=== PATIENT | male | born 1950 | race Caucasian/White ===

== ENCOUNTER 2020-10-18 22:41 | Emergency (ER) | payer MEDICARE, OTHER ==
[~2020-10-18] VITALS: Ht 175.3 cm; Wt 86.3 kg
[2020-10-18 23:26] LABS: CLARITY,URINE HAZY; COLOR,URINE ORANGE
[2020-10-18 23:27] LABS: BACTERIA,URINE FEW /HPF (0-FEW); RBC,URINE 0 /HPF (0-2); SQUAMOUS EPITHELIAL CELL,UR OCC /LPF; WBC,URINE >40 /HPF (0-4)
[2020-10-18 23:46] LABS: BASO # 0.1 x10^3/uL (0.0-0.2); BASO % 1 % (0-3); EOS # 0.2 x10^3/uL (0.0-0.7); EOS % 1 % (0-3); HEMATOCRIT 35.5 % (39.0-53.0); HEMOGLOBIN 12.2 g/dL (13.0-17.5); LYMPH # 0.3 x10^3/uL (1.0-4.8); LYMPH % 2 % (24-48); MEAN CORPUSCULAR HEMOGLOBIN 31 pg (25-35); MEAN CORPUSCULAR HGB CONC 34 g/dL (31-37); MEAN CORPUSCULAR VOLUME 90 fL (79-100); MONO # 1.5 x10^3/uL (0.0-1.1); MONO % 10 % (0-9); NEUT # 12.4 x10^3uL (1.8-7.7); NEUT % 86 % (31-73); PLATELET COUNT 219 x10^3/uL (140-400); RED BLOOD COUNT 3.96 x10^6/uL (4.30-5.70); WHITE BLOOD COUNT 14.5 x10^3/uL (4.0-11.0)
[2020-10-19 00:07] LABS: % BANDS 11 % (0-9); % LYMPHS 3 % (24-48); % MONOS 10 % (0-10); % SEGS 76 % (35-66); PLT ESTIMATE ADEQUATE (ADEQUATE)
[2020-10-19] MEDS ORDERED: CIPROFLOXACIN HCL 500 MG TABLET PO ONE (00:45)
[2020-10-19] MEDS ORDERED: IV NORMAL SALINE 100ML 100 ML ONE (00:48)
[2020-10-19 00:56] LABS: CALCIUM 8.8 mg/dL (8.5-10.1); CREATININE 1.8 mg/dL (0.7-1.3); GFR 37.5; POTASSIUM 3.1 mmol/L (3.5-5.1)
[2020-10-19 01:02] LABS: ALBUMIN 2.7 g/dL (3.4-5.0); ALBUMIN/GLOBULIN RATIO 0.6 (1.0-1.7); TOTAL BILIRUBIN 0.6 mg/dL (0.2-1.0); TOTAL PROTEIN 7.1 g/dL (6.4-8.2)
--- NOTE | 2020-10-19 01:26 | PHYS DOC ---
Past History Past Medical History: Cancer, Hypertension, Prostatitis, UTI Additional Past Medical Histor: prostate cancer Past Surgical History: Other Alcohol Use: None General Adult EDM: Chief Complaint: FEVER HPI: HPI: ".. I ve got prostate cancer.. and have been getting radiation treatments.. but the last couple days .. I ve had some increase dysuria. and feel.. like am getting some fevers and chills..." Patient is a 70 year old male who presents with dysuria and complaints of fever and chills. Pt. is currently undergoing radiation therapy for prostate cancer. He has approximately 11 more radiation treatments ago out of a total of 43. Patient reports that his cancer is localized to the prostate. No recent travel. No specific ill contacts. Has not documented a specific fever but only subjective feelings of fever. Did start taking Pyridium [id number] for his dysuria. No history of immunosuppression. Pt.follows with Dr Tracey and Dr. Mina for his prostate cancer treatment. Patient has a past medical history of abnormal EKG with intraventricular block. Review of Systems: Review of Systems: Constitutional: Denies fever or chills Eyes: Denies change in visual acuity HENT: Denies nasal congestion or sore throat Respiratory: Denies cough or shortness of breath Cardiovascular: Denies chest pain or edema GI: Denies abdominal pain, nausea, vomiting, bloody stools or diarrhea : Denies dysuria Musculoskeletal: Denies back pain or joint pain Integument: Denies rash Neurologic: Denies headache, focal weakness or sensory changes Endocrine: Denies polyuria or polydipsia Lymphatic: Denies swollen glands Psychiatric: Denies depression or anxiety Family History: Family History: None contributory to presentation Current Medications: Current Meds: Current Medications Medications (Trade) Dose Ordered Sig/Beverly Start Time Stop Time Status Last Admin Dose Admin Ceftriaxone Sodium 2 gm/ Sodium Chloride 100 ml @ 200 mls/hr 1X ONCE 10/19/20 00:45 10/19/20 01:14 DC 10/19/20 00:45 200 MLS/HR Ceftriaxone Sodium (Rocephin) 2 gm STK-MED ONCE 10/19/20 00:48 10/19/20 00:49 DC Ciprofloxacin (Cipro) 500 mg 1X ONCE 10/19/20 00:45 10/19/20 00:46 DC 10/19/20 00:53 500 MG Sodium Chloride 100 ml @ As Directed STK-MED ONCE 10/19/20 00:48 10/19/20 00:49 DC Allergies: Allergies: Allergies Coded Allergies Type Severity Reaction Last Updated Verified Sulfa (Sulfonamide Antibiotics) Allergy Intermediate 10/18/20 Yes Physical Exam: PE: Constitutional: Moderate acute distress, non-toxic appearance. [] HENT: Normocephalic, atraumatic, bilateral external ears normal, oropharynx dry, no oral exudates, nose normal. [] Eyes: PERRLA, EOMI, conjunctiva normal, no discharge. [] Neck: Normal range of motion, no tenderness, supple, no stridor. [] Cardiovascular: Tachycardia heart rate regular rhythm, no murmur. Monitor shows a wide-complex rhythm rhythm. Lungs & Thorax: Bilateral breath sounds clear to auscultation [] Abdomen: Bowel sounds normal, soft, suprapubic tenderness, no masses, no pulsatile masses. Patient climbed rectal exam at this time. Skin: Warm, dry, no erythema, no rash. [] Back: No tenderness, no CVA tenderness. [] Extremities: No tenderness, no cyanosis, no clubbing, ROM intact, no edema. Arthritic changes. Neurologic: Alert and oriented X 3, normal motor function, normal sensory function, no focal deficits noted. [] Psychologic: Affect anxious, judgement normal, mood normal. [] Current Patient Data: Labs: Laboratory Tests Test 10/18/20 22:55 10/18/20 23:13 Urine Collection Type Unknown Urine Color [place] Urine Clarity [place] Urine pH Urine Specific [place] Urine Protein (NEG-TRACE) Urine Glucose (UA) mg/dL (NEG) Urine Ketones (Stick) mg/dL (NEG) Urine Blood (NEG) Urine Nitrite (NEG) Urine Bilirubin (NEG) Urine Urobilinogen Dipstick mg/dL (0.2 mg/dL) Urine Leukocyte Esterase (NEG) Urine RBC 0 /HPF (0-2) Urine WBC >40 /HPF (0-4) Urine Squamous Epithelial Cells Occ /LPF Urine Bacteria Few /HPF (0-FEW) White Blood Count 14.5 x10^3/uL (4.0-11.0) H Red Blood Count 3.96 x10^6/uL (4.30-5.70) L Hemoglobin 12.2 g/dL (13.0-17.5) L Hematocrit 35.5 % (39.0-53.0) L Mean Corpuscular Volume 90 fL (79-100) Mean Corpuscular Hemoglobin 31 pg (25-35) Mean Corpuscular Hemoglobin Concent 34 g/dL (31-37) Red Cell Distribution Width 16.0 % (11.5-14.5) H Platelet Count 219 x10^3/uL (140-400) Neutrophils (%) (Auto) 86 % (31-73) H Lymphocytes (%) (Auto) 2 % (24-48) L Monocytes (%) (Auto) 10 % (0-9) H Eosinophils (%) (Auto) 1 % (0-3) Basophils (%) (Auto) 1 % (0-3) Neutrophils # (Auto) 12.4 x10^3uL (1.8-7.7) H Lymphocytes # (Auto) 0.3 x10^3/uL (1.0-4.8) L Monocytes # (Auto) 1.5 x10^3/uL (0.0-1.1) H Eosinophils # (Auto) 0.2 x10^3/uL (0.0-0.7) Basophils # (Auto) 0.1 x10^3/uL (0.0-0.2) Segmented Neutrophils % 76 % (35-66) H Band Neutrophils % 11 % (0-9) H Lymphocytes % 3 % (24-48) L Monocytes % 10 % (0-10) Platelet Estimate Adequate (ADEQUATE) Sodium Level 131 mmol/L (136-145) L Potassium Level 3.1 mmol/L (3.5-5.1) L Chloride Level 96 mmol/L (98-107) L Carbon Dioxide Level 22 mmol/L (21-32) Anion Gap 13 (6-14) Blood Urea Nitrogen 17 mg/dL (8-26) Creatinine 1.8 mg/dL (0.7-1.3) H Estimated GFR (Cockcroft-Gault) 37.5 BUN/Creatinine Ratio 9 (6-20) Glucose Level 490 mg/dL (70-99) H Calcium Level 8.8 mg/dL (8.5-10.1) Total Bilirubin 0.6 mg/dL (0.2-1.0) Aspartate Amino Transferase (AST) 28 U/L (15-37) Alanine Aminotransferase (ALT) 33 U/L (16-63) Alkaline Phosphatase 107 U/L (46-116) Troponin I Quantitative < 0.017 ng/mL (0-0.055) Total Protein 7.1 g/dL (6.4-8.2) Albumin 2.7 g/dL (3.4-5.0) L Albumin/Globulin Ratio 0.6 (1.0-1.7) L Vital Signs: Vital Signs Date Time Temp Pulse Resp B/P (MAP) Pulse Ox O2 Delivery O2 Flow Rate FiO2 10/19/20 00:23 70 16 137/70 (92) 98 Room Air 10/18/20 23:00 98.5 EKG: EKG: My interpretation EKG shows a sinus rhythm at 99 bpm with left axis deviation pending fascicular block. Contour abnormality in the anterior leads. No findings of acute STEMI with contralateral changes [] Radiology/Procedures: Radiology/Procedures: Refused CXR[] Heart Score: C/O Chest Pain: N/A HEART Score for Chest Pain: HEART Score for Chest Pain Response (Comments) Value History Moderately Suspicious 1 ECG Nonspecific Repolarizatio 1 Age > 65 2 Risk Factors 1 or 2 Risk Factors 1 Troponin < Normal Limit 0 Total 5 Risk Factors: Risk Factors: DM, Current or recent (<one month) smoker, HTN, HLP, family history of CAD, obesity. Risk Scores: Score 0 - 3: 2.5% MACE over next 6 weeks - Discharge Home Score 4 - 6: 20.3% MACE over next 6 weeks - Admit for Clinical Observation Score 7 - 10: 72.7% MACE over next 6 weeks - Early Invasive Strategies Course & Med Decision Making: Course & Med Decision Making Pertinent Labs and Imaging studies reviewed. (See chart for details) Patient reports marked improvement of symptoms after fluid boluses and starting on Rocephin and Cipro. Patient elects to be discharged home on Cipro 500 twice a day. Patient to follow-up pending urine and blood cultures. Patient return if any concerns. Patient push fluids. Patient push vitamin C drinks. Push fluids. Tylenol and ibuprofen as needed for discomfort and fever. Patient return if any concerns. Patient to keep follow-ups for his radiation therapy and follow-ups with his primary care. Impression: 1. UTI - UA > 40 WBC vs inflammation from radiation treatment 2. Fever 3. Prostate cancer-under treatment with radiation 4. Leukocytosis 14.5 with segs 76 and bands 11 5. Anemia Hgb. 12.2 [] Dragon Disclaimer: Dragkathie Disclaimer: This electronic medical record was generated, in whole or in part, using a voice recognition dictation system. Departure Departure: Referrals: DENIS MIRELES (PCP) Scripts Ciprofloxacin Hcl (CIPROFLOXACIN HCL) 500 Mg Tablet 500 MG PO BID for fever/uti for 14 Days, #28 TAB Prov: ALMA MARTINO MD 10/19/20 Kaia Disclaimer This chart was dictated in whole or in part using Voice Recognition software in a busy, high-work load, and often noisy Emergency Department environment. It may contain unintended and wholly unrecognized errors or omissions. ALMA MARTINO MD October 19, 2020 01:25
[2020-10-19] MEDS ORDERED: IV RINGERS SOLUTION,LACTATED 1,000 ML IV ONE (01:30)
[2020-10-19] MEDS ORDERED: CIPR500T2 PO (02:57)
--- NOTE | 2020-10-19 03:10 | EKG ---
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
[2020-10-19 03:40] VITALS: BP 133/89
== END 2020-10-19 03:40 | disposition home or self-care (01) ==
LOC: ER 22:41
DX: N39.0 Urinary tract infection, site not specified (principal); D72.829 Elevated white blood cell count, unspecified; D64.9 Anemia, unspecified; C61 Malignant neoplasm of prostate; R11.2 Nausea with vomiting, unspecified; I10 Essential (primary) hypertension; Z87.440 Personal history of urinary (tract) infections; Z88.2 Allergy status to sulfonamides
CPT/HCPCS: 36415; 80053; 81001; 84484; 85007; 85025; 87040; 87086; 87205; 93005; 96365; 96366; 99284; J0696; J7120; 80051

== ENCOUNTER 2021-02-23 13:29 | Emergency (ER) | payer MEDICARE, OTHER ==
[~2021-02-23] VITALS: Ht 175.3 cm; Wt 84.7 kg
[~2021-02-23 13:29] MED LIST: CIPR500T2 PO
--- NOTE | 2021-02-23 14:26 | PHYS DOC ---
Past History Past Medical History: Cancer, Hypertension, Prostatitis, UTI Additional Past Medical Histor: prostate cancer Past Surgical History: Cancer Surgery, Other Additional Past Surgical Histo: BOWEL RESECTION Alcohol Use: Rarely Adult General Chief Complaint Chief Complaint: BLURRED/DOUBLE VISION [facility] HPI Patient is a 70-year-old male presenting for blurred vision. Reports 6 days prior to arrival patient was bending over to tie his shoe while sitting on the side of his bed. He reports getting dizzy and falling down hitting his right posterior portion of his occiput on the carpet bedroom floor. There was no loss of consciousness, no sequelae of said fall. Reports he was able to get up on his own well and carry on with the day. He reports approximately 2 days later developing double vision with development of a left inward gaze of his left eyeball. The symptoms have been constant for past 4 days prompting him to call his social organization professor today for recommendations. It was advised he come into the ER for evaluation by their office. Patient denies any history of CVA, no blood thinner use, no other changes in motor or sensory or neuro function. He admits he has not been to the eye doctor's office in a few years and likely needs updated prescription Review of Systems Review of Systems Fourteen body systems of review of systems have been reviewed. See HPI for pertinent positives and negative responses, other jay all other systems are negative, non-pertinent or non-contributory Allergies Allergies Allergies Coded Allergies Type Severity Reaction Last Updated Verified Sulfa (Sulfonamide Antibiotics) Allergy Intermediate 10/18/20 Yes Physical Exam Physical Exam General: Appears well, non toxic, and comfortable Skin: Warm, dry. Normal for ethnicity. HEENT: Atraumatic. PERRLA. EOMI. Negative exam with ophthalmoscope. Moist mucous membranes. Neck: Trachea midline. Normal ROM. Respiratory: Normal WOB. CTAB w/o w/r/r. No tachypnea. Cardiovascular: Regular rate and rhythm. Normal peripheral perfusion. No edema. Abdomen: Soft. Non tender. No distension. Back: Normal ROM. Musculoskeletal: No swelling or deformity. Neuro: Alert and oriented x 4. Gait unremarkable. MAEE. GCS 15. Cranial nerves II through XII intact except there is leftward deviation/esotropia of left eye without issues during tracking, normal strength and sensation. Normal speech. Psych: Normal affect and mood. Current Patient Data Vital Signs Vital Signs Date Time Temp Pulse Resp B/P (MAP) Pulse Ox O2 Delivery O2 Flow Rate FiO2 02/23/21 13:40 97.6 61 20 138/87 98 Room Air Lab Results Laboratory Tests Test 02/23/21 14:30 02/23/21 14:34 White Blood Count 6.2 x10^3/uL Red Blood Count 4.56 x10^6/uL Hemoglobin 14.0 g/dL Hematocrit 40.9 % Mean Corpuscular Volume 90 fL Mean Corpuscular Hemoglobin 31 pg Mean Corpuscular Hemoglobin Concent 34 g/dL Red Cell Distribution Width 13.8 % Platelet Count 182 x10^3/uL Neutrophils (%) (Auto) 60 % Lymphocytes (%) (Auto) 23 % Monocytes (%) (Auto) 8 % Eosinophils (%) (Auto) 8 % Basophils (%) (Auto) 1 % Neutrophils # (Auto) 3.7 x10^3uL Lymphocytes # (Auto) 1.4 x10^3/uL Monocytes # (Auto) 0.5 x10^3/uL Eosinophils # (Auto) 0.5 x10^3/uL Basophils # (Auto) 0.1 x10^3/uL Sodium Level 139 mmol/L Potassium Level 4.2 mmol/L Chloride Level 103 mmol/L Carbon Dioxide Level 26 mmol/L Anion Gap 10 Blood Urea Nitrogen 18 mg/dL Creatinine 1.5 mg/dL Estimated GFR (Cockcroft-Gault) 46.3 Glucose Level 157 mg/dL Calcium Level 9.1 mg/dL Troponin I Quantitative < 0.017 ng/mL Glucose (Fingerstick) 143 mg/dL Current Medications Medications (Trade) Dose Ordered Sig/Beverly Route PRN Reason Start Time Stop Time Status Last Admin Dose Admin Iohexol (Omnipaque 350 Mg/ml) 100 ml 1X ONCE IV 02/23/21 15:30 02/23/21 15:31 DC 02/23/21 15:38 Info (Do NOT chart on this entry -- for MONITORING) 1 each PRN DAILY PRN MC SEE COMMENTS 02/23/21 15:30 02/25/21 15:29 Iohexol (Omnipaque 350 Mg/ml) 100 ml STK-MED ONCE .ROUTE 02/23/21 15:28 02/23/21 15:28 DC EKG EKG EKG ordered and interpreted by myself at 1431 hrs. as sinus rhythm at 53 bpm, prolonged DC at 208 otherwise unremarkable intervals, left axis deviation, no STEMI Prior EKG obtained October 18, 2020 reviewed for comparison and grossly unchanged Radiology/Procedures Radiology/Procedures Exam: CT head. CTA head and neck INDICATION: Fall one week ago, left eye blurred vision TECHNIQUE: Sequential axial images through the head were obtained without the administration of IV contrast. Sequential axial images through the head and neck following the administration of 80 mL of Isovue-370. 3-D reformatted images were reconstructed from the axial data and reviewed. Exposure: One or more of the following in the visualized dose reduction techniques were utilized for this examination: 1. Automated exposure control 2. Adjustment of the MA and/or KV according to patient size 3. Use of iterative of reconstructive technique Comparisons: None FINDINGS: Head: No focal parenchymal lesion or hemorrhage is identified. There is no midline shift or sulcal effacement. Patchy hypodensity in the periventricular white matter. No acute vascular territory infarction is identified. Gustafson-white distinction is preserved. The ventricular system is within normal limits without compression hydrocephalus. The basal cisterns are well maintained. The visualized portions of the paranasal sinuses and mastoid air cells are well- pneumatized. No acute fractures. CTA NECK: Visualized portions of the thoracic aorta are unremarkable. Standard three- vessel aortic arch anatomy. Right common carotid artery is patent without evidence of stenosis, occlusion or aneurysm. Mild calcified plaque at the origin of the right internal carotid artery without significant stenosis. Left common carotid artery is patent without evidence of stenosis, occlusion or aneurysm. Mild plaque at the origin of the left internal carotid artery without significant stenosis. Right vertebral artery is patent to the basilar confluence without evidence of stenosis, occlusion or aneurysm. Left vertebral artery is patent to the basilar confluence without evidence of stenosis, occlusion or aneurysm. Visualized paraspinal soft tissues are unremarkable. CTA HEAD: Minimal calcified plaque at the cavernous segment of the right internal carotid artery without significant stenosis. Right MCA is patent. Right FANNIE is patent. Minimal calcified plaque at the cavernous segment of the left internal carotid artery without cement stenosis. Left MCA is patent. Left FANNIE is patent. Basilar artery is patent without evidence of stenosis, occlusion or aneurysm. tax investigator are patent bilaterally. IMPRESSION: 1. Moderate small vessel ischemic change, technically age indeterminate without recent prior imaging. 2. Mild plaque at the origin of the internal carotid arteries bilaterally without significant stenosis. 3. Minimal calcified plaque at the cavernous segments of the internal carotid arteries bilaterally without significant stenosis. Electronically signed by: Jesse Pedersen MD (02/23/2021 4:12 PM) [facility] Heart Score C/O Chest Pain: No HEART Score for Chest Pain: HEART Score for Chest Pain Response (Comments) Value History Slighlty/Non-Suspicious 0 ECG Nonspecific Repolarizatio 1 Age > 65 2 Risk Factors >3 Risk Factors or Hx CAD 2 Troponin < Normal Limit 0 Total 5 Risk Factors: Risk Factors: DM, Current or recent (<one month) smoker, HTN, HLP, family history of CAD, obesity. Risk Scores: Risk Factors: DM, Current or recent (<one month) smoker, HTN, HLP, family history of CAD, obesity. Course & Med Decision Making Course & Med Decision Making ABCs unremarkable. I disclosed entirety of ER findings and discussed most likely diagnosis of blurred vision and left ocular muscle abnormality/esotropia of unknown etiology. Other diagnoses were discussed with patient such as CVA, intracerebral hemorrhage versus other immediately life-threatening diagnoses but all deemed less likely causes of patient's presentation. I contacted on-call neurologist attending and reviewed case at length, he agreed need for CT head and CTA head and neck that were unremarkable for any emergent or surgical issues. Patient while out of the window for any type of thrombolytic or other surgical intervention. It was recommended that patient be admitted for neuro checks and formal evaluation by neurologist; however, patient and wanting to discharge home. Patient and disclosed they want to see eye doctor this evening with plans for close outpatient follow-up with neurologist. They report that despite blurred vision and eye changes recently, patient has had gait instability and other concerning findings that have been chronic and likely contributory to patient's history of prostate cancer with numerous radiation treatments. I again disclosed my concern for patient being discharged home and recommended need for hospital admission but they deferred. and daughter reiterate good family support and plan on taking care of patient ensuring proper fall precautions until patient can be formally evaluated by social organization professor and later neurologist in outpatient setting. I contacted neurology attending regarding this and he felt it was appropriate, he advised patient to contact his office 1st thing next scheduled business day for close follow-up within upcoming 24 hours. As such, plan of care discussed at length with need for close outpatient follow-up to review today's ER visit stressed. Strict return precautions were also discussed at length with good understanding verbalized by patient. Patient voiced understanding and agreement with the plan. Patient knows to come back for repeat evaluation if concerning signs or symptoms present prior to outpatient follow-up. Hemodynamically stable, ambulatory and well-appearing at time of disposition. Dragon Disclaimer Dragon Disclaimer This electronic medical record was generated, in whole or in part, using a voice recognition dictation system. Departure Departure: Impression: Primary Impression: Blurred vision, bilateral Additional Impression: Esotropia, left eye Disposition: HOME / SELF CARE / HOMELESS Condition: STABLE Referrals: DENIS MIRELES (PCP) ZEUS VALLEJO MD Patient Instructions: Eye - Blurred Vision Additional Instructions: As discussed prior to ER departure, your comprehensive ER work-up was nonconcerning for any emergent or surgical issues. As disclosed, there were no emergent or surgical indications for aggressive intervention while in ER. With that said, I did disclose and recommended hospital admission for your continued blurred vision in left eye inward gaze otherwise known as esotropia. You chose to discharge home. Because of this, it is pertinent that you contact your eye doctor for close evaluation with an upcoming 24 to 48 hours. I also relayed the decision for you to follow-up in outpatient setting with Dr. Vallejo, the neurologist I spoke with while in the ER and he asks you to call his office first thing in the morning at 9 AM to get a scheduled outpatient clinic visit tomorrow on February 24, 2021. If any concerning signs or symptoms present prior to outpatient follow-up please do not hesitate to come back for repeat evaluation, was a pleasure to take care of you and I wish you the best going forward Problem Qualifiers SABINA ALMENDAREZ DO Feb 23, 2021 14:26
--- NOTE | 2021-02-23 14:30 | EKG ---
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
[2021-02-23 14:56] LABS: BASO # 0.1 x10^3/uL (0.0-0.2); BASO % 1 % (0-3); EOS # 0.5 x10^3/uL (0.0-0.7); EOS % 8 % (0-3); HEMATOCRIT 40.9 % (39.0-53.0); LYMPH # 1.4 x10^3/uL (1.0-4.8); LYMPH % 23 % (24-48); MEAN CORPUSCULAR HEMOGLOBIN 31 pg (25-35); MEAN CORPUSCULAR HGB CONC 34 g/dL (31-37); MEAN CORPUSCULAR VOLUME 90 fL (79-100); MONO # 0.5 x10^3/uL (0.0-1.1); MONO % 8 % (0-9); NEUT # 3.7 x10^3uL (1.8-7.7); NEUT % 60 % (31-73); PLATELET COUNT 182 x10^3/uL (140-400); RED BLOOD COUNT 4.56 x10^6/uL (4.30-5.70); RED CELL DISTRIBUTION WIDTH 13.8 % (11.5-14.5); WHITE BLOOD COUNT 6.2 x10^3/uL (4.0-11.0)
[2021-02-23 15:16] LABS: CALCIUM 9.1 mg/dL (8.5-10.1); CREATININE 1.5 mg/dL (0.7-1.3); GFR 46.3; POTASSIUM 4.2 mmol/L (3.5-5.1)
[2021-02-23] MEDS ORDERED: IOHEXOL 350 MG/ML 100 ML VIAL. ONE (15:28)
[2021-02-23] MEDS ORDERED: CONTRAST GIVEN. MC PRN (15:30)
[2021-02-23] MEDS ORDERED: IOHEXOL 350 MG/ML 100 ML VIAL. IV ONE (15:30)
--- NOTE | 2021-02-23 16:15 | RAD ---
Exam: CT head. CTA head and neck INDICATION: Fall one week ago, left eye blurred vision TECHNIQUE: Sequential axial images through the head were obtained without the administration of IV co ntrast. Sequential axial images through the head and neck following the administration of 80 mL of Is ovue-370. 3-D reformatted images were reconstructed from the axial data and reviewed. Exposure: One or more of the following in the visualized dose reduction techniques were utilized for this examination: 1. Automated exposure control 2. Adjustment of the MA and/or KV according to patient size 3. Use of iterative of reconstructive technique Comparisons: None FINDINGS: Head: No focal parenchymal lesion or hemorrhage is identified. There is no midline shift or sulcal effaceme nt. Patchy hypodensity in the periventricular white matter. No acute vascular territory infarction is luis alfredo ntified. Gustafson-white distinction is preserved. The ventricular system is within normal limits without compression hydrocephalus. The basal cisterns are well maintained. The visualized portions of the paranasal sinuses and mastoid air cells are well-pneumatized. No acute fractures. CTA NECK: Visualized portions of the thoracic aorta are unremarkable. Standard three-vessel aortic arch anatomy . Right common carotid artery is patent without evidence of stenosis, occlusion or aneurysm. Mild calci fied plaque at the origin of the right internal carotid artery without significant stenosis. Left common carotid artery is patent without evidence of stenosis, occlusion or aneurysm. Mild plaque at the origin of the left internal carotid artery without significant stenosis. Right vertebral artery is patent to the basilar confluence without evidence of stenosis, occlusion or aneurysm. Left vertebral artery is patent to the basilar confluence without evidence of stenosis, occlusion or aneurysm. Visualized paraspinal soft tissues are unremarkable. CTA HEAD: Minimal calcified plaque at the cavernous segment of the right internal carotid artery without signif icant stenosis. Right MCA is patent. Right FANNIE is patent. Minimal calcified plaque at the cavernous segment of the left internal carotid artery without cement stenosis. Left MCA is patent. Left FANNIE is patent. Basilar artery is patent without evidence of stenosis, occlusion or aneurysm. oracle adf developer are patent bilater ally. IMPRESSION: 1. Moderate small vessel ischemic change, technically age indeterminate without recent prior imaging . 2. Mild plaque at the origin of the internal carotid arteries bilaterally without significant stenos is. 3. Minimal calcified plaque at the cavernous segments of the internal carotid arteries bilaterally w ithout significant stenosis. Electronically signed by: Jesse Pedersen MD (02/23/2021 4:12 PM) [facility]
[2021-02-23 17:12] VITALS: BP 159/87
== END 2021-02-23 17:21 | disposition home or self-care (01) ==
LOC: ER 13:29
DX: H53.8 Other visual disturbances (principal); H50.00 Unspecified esotropia; I10 Essential (primary) hypertension; Z87.440 Personal history of urinary (tract) infections; Z88.2 Allergy status to sulfonamides; W18.09XA Striking against other object with subsequent fall, initial encounter; Y93.89 Activity, other specified; Y92.89 Other specified places as the place of occurrence of the external cause; Y99.8 Other external cause status
CPT/HCPCS: 36415; 70450; 70496; 70498; 80048; 82947; 84484; 85025; 93005; 99285; Q9967

== ENCOUNTER 2021-07-30 10:30 | Emergency (ER) | payer MEDICARE, OTHER ==
[~2021-07-30] VITALS: Ht 175.3 cm; Wt 81.0 kg
--- NOTE | 2021-07-30 10:51 | PHYS DOC ---
Past History Past Medical History: Cancer, Hypertension, Prostatitis, UTI Additional Past Medical Histor: prostate cancer (AILEEN HALL APRN) Past Surgical History: Cancer Surgery, Other Additional Past Surgical Histo: BOWEL RESECTION, CABG 06/2021 (AILEEN HALL APRN) Alcohol Use: Rarely (AILEEN HALL APRN) General Adult EDM: Chief Complaint: CHEST PAIN HPI: HPI: Patient is a 71-year-old male presents with midsternal chest pain that radiated to left armpit. Patient reports that discomfort started yesterday while he was at physical therapy. Patient states he is not having any chest pain at this time but still has discomfort in his left armpit. Pain has been intermittent. Patient has an extensive cardiac history. Patient recently had a open heart and CVA x2. Denies shortness of breath, recent illness, fever. Patient was seen by his PCP and sent to the emergency room for concerns of PE. History of hy pertension, hyperlipidemia, AL, CVA, prostate cancer. (AILEEN HALL APRN) Review of Systems: Review of Systems: ROS At least 10 ROS systems have been reviewed and are negative except as documented in the HPI. General: Negative except as outlined in HPI above. Skin: Negative except as outlined in HPI above. HEENT: Negative except as outlined in HPI above. Neck: Negative except as outlined in HPI above. Respiratory: Negative except as outlined in HPI above.. Cardiovascular: Negative except as outlined in HPI above. Abdomen: Negative except as outlined in HPI above. : Negative except as outlined in HPI above. Back/MSK: Negative except as outlined in HPI above. Neuro: Negative except as outlined in HPI above. Psych: Negative except as outlined in HPI above. (AILEEN HALL APRN) Allergies: Allergies: Allergies Coded Allergies Type Severity Reaction Last Updated Verified Sulfa (Sulfonamide Antibiotics) Allergy Intermediate 07/30/21 Yes (AILEEN HALL APRN) Physical Exam: PE: Constitutional: Well developed, well nourished, no acute distress, non-toxic appearance. [] HENT: Normocephalic, atraumatic, bilateral external ears normal, oropharynx moist, no oral exudates, nose normal. [] Eyes: PERRLA, EOMI, conjunctiva normal, no discharge. [] Neck: Normal range of motion, no tenderness, supple, no stridor. [] Cardiovascular:Heart rate regular rhythm, no murmur [] Lungs & Thorax: Bilateral breath sounds clear to auscultation [] Abdomen: Bowel sounds normal, soft, no tenderness, no masses, no pulsatile masses. [] Skin: Incision to mid chest from recent open heart, no signs of infection Back: No tenderness, no CVA tenderness. [] Extremities: Left, arm discomfort, pain is intermittent. ROM intact, no edema. [] Neurologic: Alert and oriented X 3, normal motor function, normal sensory function, no focal deficits noted. [] Psychologic: Affect normal, judgement normal, mood normal. [] (AILEEN HALL APRN) Current Patient Data: Vital Signs: Vital Signs Date Time Temp Pulse Resp B/P (MAP) Pulse Ox O2 Delivery O2 Flow Rate FiO2 07/30/21 10:35 97.6 78 24 120/69 (86) 97 Room Air (AILEEN HALL APRN) EKG: EKG: Sinus rhythm. No ST elevation or depression. Heart rate [address] Hung at 1039. [] (AILEEN HALL APRN) Radiology/Procedures: Radiology/Procedures: []Single view of the chest. 07/30/2021 10:46 AM Indication: Reason: SHORTNESS OF BREATH HX: CABG X 12 DAYS AGO / Comparison: None available Findings: There is a small left pleural effusion with underlying atelectasis. Postoperative changes following CABG surgery noted. No significant congestive changes are seen. Right lung is grossly clear. No pneumothorax is seen. No acute osseous changes are identified. IMPRESSION: Small left pleural effusion with underlying atelectasis. Electronically signed by: Cem Patten MD (07/30/2021 11:01 AM) [id number] CTA CHEST History: Chest pain status post CABG. Comparison: None. Technique: CTA of the pulmonary arteries with intravenous contrast. 3-D postprocessing was performed. Findings: Pulmonary arteries: No pulmonary embolism. Normal caliber. Aorta and great vessels: No aneurysm or dissection of the aortic arch or thoracic aorta. Postsurgical changes from CABG. Thyroid: No significant abnormalities. Mediastinum and michelle: No mediastinal masses or adenopathy is seen. Esophagus: Mildly patulous with and mural thickening of the lower esophagus. Heart: Mild cardiomegaly. Trace pericardial fluid. Postsurgical changes from CABG with calcifications of the [place] arteries. Airways, Lungs, Pleura: Patent airways. Small left pleural effusion with partial atelectasis of the left lower lobe and lingula. No right lung airspace consolidation. No pneumothorax. Upper abdomen: Limited evaluation of the upper abdomen is unremarkable. Osseous structures and soft tissues: Postsurgical changes of the sternum. Mild degenerative changes of the spine. Impression: 1. No pulmonary embolism, aortic aneurysm or aortic dissection. 2. Small left pleural effusion with partial atelectasis of the left lower lobe and lingula. 3. Mild wall thickening of the distal esophagus. Correlate for esophagitis. ------ Exposure: One or more of the following individualized dose reduction techniques were utilized for this examination: 1. Automated exposure control 2. Adjustment of the mA and/or kV according to patient size 3. Use of iterative reconstruction technique. Electronically signed by: Marbin Mendiola MD (07/30/2021 1:32 PM) [id number] (AILEEN HALL APRN) Heart Score: C/O Chest Pain: Yes HEART Score for Chest Pain: HEART Score for Chest Pain Response (Comments) Value History Highly Suspicious 2 ECG Normal 0 Age > 65 2 Risk Factors >3 Risk Factors or Hx CAD 2 Troponin < Normal Limit 0 Total 6 Risk Factors: Risk Factors: DM, Current or recent (<one month) smoker, HTN, HLP, family history of CAD, obesity. Risk Scores: Score 0 - 3: 2.5% MACE over next 6 weeks - Discharge Home Score 4 - 6: 20.3% MACE over next 6 weeks - Admit for Clinical Observation Score 7 - 10: 72.7% MACE over next 6 weeks - Early Invasive Strategies (AILEEN HALL APRN) Course & Med Decision Making: Course & Med Decision Making Pertinent Labs and Imaging studies reviewed. (See chart for details) 71-year-old male presents with midsternal chest pain that radiates to his left armpit. Patient states that pain started yesterday and has been intermittent. Patient was sent in by PCP for further evaluation. Work-up in ER consisted of labs, urinalysis, EKG, troponin. BNP, 1969. Creatinine 1.5. D-dimer was elevated at 3.61. CTA ordered to rule out pulmonary embolism. Patient denies history of DVT or PE. Denies being on blood thinners. Patient's heart score is 6. Rapid Covid was negative.Discussed with patient and that he would most likely need to stay for further evaluation. Patient was hesitant. states that if patient will be admitted she wants him admitted at [facility] due to having open heart surgery at that location in June. Spoke with Dr. Zavaleta regarding lab and CT results. Considering all labs and imaging was unremarkable, Dr. Arroyo was okay with patient going back to rehab and following up with PCP for further management. Discussed return precautions with patient and . Both state they understand discharge instructions. (AILEEN HALL APRN) Dragon Disclaimer: Dragon Disclaimer: This electronic medical record was generated, in whole or in part, using a voice recognition dictation system. (AILEEN HALL APRN) Attending Co-Sign The patient was seen and interviewed as well as examined at the bedside. The chart was reviewed. The case was discussed. Agree with the plan of care. (LATRICE HUNG DO) Departure Departure: Impression: Primary Impression: Pressure in left side of chest Disposition: 01 HOME / SELF CARE / HOMELESS Condition: STABLE Referrals: DENIS MIRELES (PCP) Patient Instructions: Chest Pain (Nonspecific), [id number] Additional Instructions: You were seen in the emergency room for left left-sided chest pain that radiated into your armpit. All your labs were unremarkable, all imaging was also unremarkable. Please return emergency room if you have worsening symptoms or concerns. Return to emergency room with chest pain, shortness of breath uncontrolled nausea and vomiting. EMERGENCY DEPARTMENT GENERAL DISCHARGE INSTRUCTIONS Thank you for coming to [facility] (ED) today and trusting us with you care. We trust that you had a positivie experience in our Emergency Department. If you wish to speak to the department management, you may call the director at [phone]. YOUR FOLLOW UP INSTRUCTIONS ARE FOLLOWS: 1. Do you have a private Doctor? If you do not have a private doctor, please ask for a resource list of physicians or clinics that may be able to assist you with follow up care. 2. The Emergency Physician has interpreted your x-rays. The X-Ray specialist will also review them. If there is a change in the findings, you will be notified in 48 hours when at all possible. 3. A lab test or culture has been done, your results will be reviewed and you will be notified if you need a change in treatment. ADDITIONAL INSTRUCTIONS AND INFORMATION: 1. Your care today has been supervised by a physician who is specially trained in emergency care. Many problems require more than one evaluation for a complete diagnosis and treatment. We recommend that you schedule your follow up appointment as recommended to ensure complete treatment of you illness or injury. If you are unable to obtain follow up care and continue to have a problem, or if your condition worsens, we recommend that you return to the ED. 2. We are not able to safely determine your condition over the phone nor are we able to give sound medical advice over the phone. For these safety reasons, if you call for medical advice we will ask you to come to the ED for further evaluation. 3. If you have any questions regarding these discharge instructions please call the ED at [phone]. SAFETY INFORMATION: In the interest of safety, wellness, and injury prevention; we encourage you to wear your sealbelt, if you smoke; quite smoking, and we encourage family to use a protective helmet for bicycling and other sporting events that present an increased risk for head injury. IF YOUR SYMPTOMS WORSEN OR NEW SYMPTOMS DEVELOP, OR YOU HAVE CONCERNS ABOUT YOUR CONDITION; OR IF YOUR CONDITION WORSENS WHILE YOU ARE WAITING FOR YOUR FOLLOW UP APPOINT MENT; EITHER CONTACT YOUR PRIMARY CARE DOCTOR, THE PHYSICIAN WHOSE NAME AND NUMBER YOU WERE GIVEN, OR RETURN TO THE ED IMMEDIATELY. AILEEN HALL APRN Jul 30, 2021 10:51 LATRICE HUNG DO Aug 02, 2021 06:17
--- NOTE | 2021-07-30 10:59 | EKG ---
[address] [address] Test Date: 2021-07-30 Test Time: 10:36:52 Pat Name: BENSON JORDAN Department: Room: Gender: M Psychology Technician: [facility] : 1950 Requested By: AILEEN HALL Order Number: [id number] Reading MD: Homar Veloz MD Measurements Intervals [place] Rate: 78 P: 149 AK: 210 QRS: -41 QRSD: 152 T: 44 QT: 404 QTc: 464 Interpretive Statements SR RBBB CONSIDER ANTERIOR INFARCT Electronically Signed On 08-02-2021 8:29:52 DISPATCH ASSOCIATE by Homar Veloz MD
--- NOTE | 2021-07-30 11:04 | RAD ---
Single view of the chest. 07/30/2021 10:46 AM Indication: Reason: SHORTNESS OF BREATH HX: CABG X 12 DAYS AGO / Comparison: None available Findings: There is a small left pleural effusion with underlying atelectasis. Postoperative changes f ollowing CABG surgery noted. No significant congestive changes are seen. Right lung is grossly clear. No pneumothorax is seen. No acute osseous changes are identified. IMPRESSION: Small left pleural effusion with underlying atelectasis. Electronically signed by: Cem Patten MD (07/30/2021 11:01 AM) [id number]
[2021-07-30 11:05] LABS: BASO # 0.1 x10^3/uL (0.0-0.2); BASO % 1 % (0-3); EOS # 0.4 x10^3/uL (0.0-0.7); EOS % 8 % (0-3); HEMATOCRIT 34.6 % (39.0-53.0); HEMOGLOBIN 11.4 g/dL (13.0-17.5); LYMPH # 0.8 x10^3/uL (1.0-4.8); LYMPH % 18 % (24-48); MEAN CORPUSCULAR HEMOGLOBIN 31 pg (25-35); MEAN CORPUSCULAR HGB CONC 33 g/dL (31-37); MEAN CORPUSCULAR VOLUME 94 fL (79-100); MONO # 0.4 x10^3/uL (0.0-1.1); MONO % 9 % (0-9); NEUT % 63 % (31-73); PLATELET COUNT 421 x10^3/uL (140-400); RED BLOOD COUNT 3.69 x10^6/uL (4.30-5.70); RED CELL DISTRIBUTION WIDTH 15.3 % (11.5-14.5); WHITE BLOOD COUNT 4.7 x10^3/uL (4.0-11.0)
[2021-07-30 11:11] LABS: CALCIUM 8.9 mg/dL (8.5-10.1); CREATININE 1.5 mg/dL (0.7-1.3); GFR 46.1; POTASSIUM 4.5 mmol/L (3.5-5.1)
[2021-07-30 11:23] LABS: ALBUMIN/GLOBULIN RATIO 0.8 (1.0-1.7); TOTAL BILIRUBIN 0.3 mg/dL (0.2-1.0); TOTAL PROTEIN 6.8 g/dL (6.4-8.2)
[2021-07-30] MEDS ORDERED: IOHEXOL 350 MG/ML 100 ML VIAL. IV ONE ×2 (13:00)
[2021-07-30] MEDS ORDERED: CONTRAST GIVEN. MC PRN (13:00)
--- NOTE | 2021-07-30 13:34 | RAD ---
CTA CHEST History: Chest pain status post CABG. Comparison: None. Technique: CTA of the pulmonary arteries with intravenous contrast. 3-D postprocessing was performed. Findings: Pulmonary arteries: No pulmonary embolism. Normal caliber. Aorta and great vessels: No aneurysm or dissection of the aortic arch or thoracic aorta. Postsurgical changes from CABG. Thyroid: No significant abnormalities. Mediastinum and michelle: No mediastinal masses or adenopathy is seen. Esophagus: Mildly patulous with and mural thickening of the lower esophagus. Heart: Mild cardiomegaly. Trace pericardial fluid. Postsurgical changes from CABG with calcifications of the [place] arteries. Airways, Lungs, Pleura: Patent airways. Small left pleural effusion with partial atelectasis of the l eft lower lobe and lingula. No right lung airspace consolidation. No pneumothorax. Upper abdomen: Limited evaluation of the upper abdomen is unremarkable. Osseous structures and soft tissues: Postsurgical changes of the sternum. Mild degenerative changes o f the spine. Impression: 1. No pulmonary embolism, aortic aneurysm or aortic dissection. 2. Small left pleural effusion with partial atelectasis of the left lower lobe and lingula. 3. Mild wall thickening of the distal esophagus. Correlate for esophagitis. ------ Exposure: One or more of the following individualized dose reduction techniques were utilized for thi s examination: 1. Automated exposure control 2. Adjustment of the mA and/or kV according to patient size 3. Use of iterative reconstruction technique. Electronically signed by: Marbin Mendiola MD (07/30/2021 1:32 PM) [id number]
[2021-07-30 14:35] VITALS: BP 128/68
[2021-07-30 15:57] LABS: BILIRUBIN,URINE NEG (NEG); CLARITY,URINE CLEAR; COLOR,URINE YELLOW; GLUCOSE,URINE NEG (NEG); UROBILINOGEN,URINE 0.2 mg/dL (0.2 mg/dL)
[2021-07-30 15:58] LABS: BACTERIA,URINE 0 /HPF (0-FEW); NITRITE,URINE NEG (NEG); SQUAMOUS EPITHELIAL CELL,UR OCC /LPF; WBC,URINE 0 /HPF (0-4)
== END 2021-07-30 15:30 | disposition home or self-care (01) ==
LOC: ER 10:30
DX: R07.2 Precordial pain (principal); I10 Essential (primary) hypertension; E78.5 Hyperlipidemia, unspecified; I25.2 Old myocardial infarction; Z20.822 Contact with and (suspected) exposure to COVID-19; Z87.440 Personal history of urinary (tract) infections; Z86.73 Personal history of transient ischemic attack (TIA), and cerebral infarction without residual deficits; Z88.2 Allergy status to sulfonamides
CPT/HCPCS: 71046; 71275; 80053; 81001; 83735; 83880; 84484; 85025; 85379; 87426; 93005; 99285; C9803; U0003

== ENCOUNTER 2021-08-03 17:11 | Emergency (ER) | payer MEDICARE, OTHER ==
[~2021-08-03] VITALS: Ht 175.3 cm; Wt 81.0 kg
--- NOTE | 2021-08-03 17:25 | PHYS DOC ---
Past History Past Medical History: Cancer, Hypertension, Prostatitis, UTI Additional Past Medical Histor: prostate cancer (LATRICE HUNG DO) Past Medical History: Anemia, CAD, Diabetes (ALMA MARTINO MD) Past Surgical History: Cancer Surgery, Other Additional Past Surgical Histo: BOWEL RESECTION, CABG 06/2021 (LATRICE HUNG DO) Past Surgical History: Coronary Bypass Surgery (ALMA MARTINO MD) Alcohol Use: None (LATRICE HUNG DO) General Adult EDM: Chief Complaint: AMS HPI: HPI: 71-year-old male presents from [facility] with altered mental status and decreased steadiness of gait. The patient was recently seen in this emergency room with concern for shortness of breath and pulmonary embo fernanda. Patient had a CABG last month. That is why he is at rehab. Patient states he just feels. He denies any focal weakness, but it was reported that his gait was different today than yesterday. Patient denies chest pain, shortness of breath, headache, fever, chills. He vomited on arrival. He has no other specific complaints at this time. (LATRICE HUNG DO) Review of Systems: Review of Systems: Constitutional: Denies fever or chills Eyes: Denies change in visual acuity HENT: Denies nasal congestion or sore throat Respiratory: Denies cough or shortness of breath Cardiovascular: Denies chest pain or edema GI: nausea, vomiting,. Denies abdominal pain, bloody stools or diarrhea : Denies dysuria Musculoskeletal: Denies back pain or joint pain Integument: Denies rash Neurologic: Gait disturbance. Denies headache, focal weakness or sensory changes Endocrine: Denies polyuria or polydipsia Lymphatic: Denies swollen glands Psychiatric: Denies depression or anxiety (LATRICE HUNG DO) Current Medications: Current Meds: Current Medications Medications (Trade) Dose Ordered Sig/[place] Start Time Stop Time Status Last Admin Dose Admin Ondansetron HCl (Zofran) 4 mg 1X ONCE 08/03/21 17:30 08/03/21 17:31 UNV (LATRICE HUNG DO) Allergies: Allergies: Allergies Coded Allergies Type Severity Reaction Last Updated Verified Sulfa (Sulfonamide Antibiotics) Allergy Intermediate 07/30/21 Yes (LATRICE HUNG DO) Physical Exam: PE: Constitutional: Well developed, well nourished, no acute distress, non-toxic appearance. [] HENT: Normocephalic, atraumatic, bilateral external ears normal, oropharynx moist, no oral exudates, nose normal. [] Eyes: PERRLA, EOMI, conjunctiva normal, no discharge. [] Neck: Normal range of motion, no tenderness, supple, no stridor. [] Cardiovascular: Heart rate regular rhythm, no murmur [] Lungs & Thorax: Bilateral breath sounds clear to auscultation [] Abdomen: Bowel sounds normal, soft, no tenderness, no masses, no pulsatile masses. [] Skin: Warm, pale, dry, no erythema, no rash. [] Back: No tenderness, no CVA tenderness. [] Extremities: No tenderness, no cyanosis, no clubbing, ROM intact, no edema. [] Neurologic: Alert and oriented X 3, normal motor function, normal sensory function, no focal deficits noted. [] Psychologic: Affect normal, judgement normal, mood normal. [] (LATRICE HUNG DO) EKG: EKG: [] (LATRICE HUNG DO) EKG: My interpretation EKG shows a rate of 119 regular rhythm and no discernible P wave with a right bundle branch block and inferior lateral ST changes. Possible HI. Abnormal EKG. Time of EKG is 0 538. EKG referred to Dr. Rossi for review. (ALMA MARTINO MD) Radiology/Procedures: Radiology/Procedures: [] (LATRICE HUNG DO) Radiology/Procedures: [place] [id number] IMAGING REPORT Signed PATIENT: BENSON JORDAN ACCOUNT: [id number] : 1950 LOCATION: ER AGE: 71 SEX: M EXAM STATUS: REG ER ORD. PHYSICIAN: ALMA MARTINO MD REASON: Dyspnea, change in gait, AMS, CABG 06/2021 Omni 350 75cc PROCEDURE: CT ANGIOGRAPHY CHEST CTA CHEST History: Dyspnea, change in gait, altered mental status. 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 Comparison: CTA chest 07/30/2021. Technique: CTA of the pulmonary arteries with intravenous contrast. 3-D postprocessing was performed. Findings: Pulmonary arteries: No pulmonary embolism. Aorta and great vessels: No aneurysm or dissection of the aortic arch or thoracic aorta. Mild atherosclerosis. CABG changes of the aorta and mediastinum. Thyroid: No significant abnormalities. Mediastinum and michelle: No mediastinal masses or adenopathy is seen. Esophagus: Redemonstrated mild distal esophageal wall thickening. Heart: The heart is normal in size. There is no pericardial effusion. CABG changes. Coronary artery calcification. Airways, Lungs, Pleura: Small left, trace right pleural effusion, similar to comparison. Moderate left lower lobe and lingular atelectasis. Minimal right lo wer lobe atelectasis. Findings similar to comparison. Upper abdomen: Limited evaluation of the upper abdomen is unremarkable. Osseous structures and soft tissues: Postsurgical changes from sternotomy. Impression: 1. No pulmonary embolism, aortic aneurysm or aortic dissection. 2. Redemonstrated small left pleural effusion with moderate atelectasis of the left lower lobe and lingula. Superimposed infection cannot be excluded. 3. Redemonstrated mild distal esophageal wall thickening. Correlate for esopha gitis. ------ Exposure: One or more of the following individualized dose reduction techniques were utilized for this examination: 1. Automated exposure control 2. Adjustment of the mA and/or kV according to patient size 3. Use of iterative reconstruction technique. Electronically signed by: Marbin Cuevas MD (08/03/2021 9:21 PM) [facility] DICTATED AND SIGNED BY: MARBIN CUEVAS MD DATE: 08/03/212114 CC: DENIS MIRELES; ALMA MARTINO MD ~[facility] [address] [id number] IMAGING REPORT Signed PATIENT: BENSON JORDAN ACCOUNT: [id number] : 1950 LOCATION: ER AGE: 71 SEX: M EXAM STATUS: REG ER ORD. PHYSICIAN: LATRICE HUNG DO REASON: ALTERED MENTAL STATUS PROCEDURE: CHEST AP ONLY EXAM: XR CHEST 1V 08/03/2021 5:27 PM CLINICAL INDICATION: Altered mental status COMPARISON: Chest radiograph 07/30/2021 TECHNIQUE: AP upright view of the chest FINDINGS: There are changes of median sternotomy. The heart is normal in size. Lungs are adequately expanded. There are increased left retrocardiac opacities. Unchanged small left pleural effusion. The right lung is clear. No pneumothorax. IMPRESSION: Increased left retrocardiac opacities. Unchanged small left pleural effusion. Electronically signed by: Opal Bell MD (08/03/2021 7:36 PM) [id number] DICTATED AND SIGNED BY: OPAL BELL MD DATE: 08/03/211930 CC: LATRICE HUNG DO; DENIS MIRELES; ALMA MARTINO MD ~[facility] [address] [place] [id number] IMAGING REPORT Signed PATIENT: BENSON JORDAN ACCOUNT: [id number] : 1950 LOCATION: ER AGE: 71 SEX: M EXAM STATUS: REG ER ORD. PHYSICIAN: LATRICE HUNG DO REASON: ALTERED MENTAL STATUS PROCEDURE: CT HEAD WO CONTRAST CT HEAD/BRAIN WO History: Altered mental status. Comparison: 02/23/2021 Technique: Noncontrast CT imaging was performed of the head. Findings: No intracranial hemorrhage. No mass effect. No hydrocephalus. No evidence of acute territorial infarction. Mild hypodensity the periventricular and deep white matter most likely represents chronic microvascular ischemic change.. Imaged orbits are unremarkable. Imaged paranasal sinuses and mastoid air cells are clear. The scalp and calvarium are unremarkable. Impression: 1. No acute intracranial abnormality. ----- Exposure: One or more of the following individualized dose reduction techniques were utilized for this examination: 1. Automated exposure control 2. Adjustment of the mA and/or kV according to patient size 3. Use of iterative reconstruction technique. Electronically signed by: Marbin Cuevas MD (08/03/2021 6:32 PM) [facility] DICTATED AND SIGNED BY: MARBIN CUEVAS MD DATE: 08/03/211829 CC: LATRICE HUNG DO; DENIS MIRELES; ALMA MARTINO MD ~MTH0 0 (ALMA MARTINO MD) Heart Score: C/O Chest Pain: N/A Risk Factors: Risk Factors: DM, Current or recent (<one month) smoker, HTN, HLP, family histo ry of CAD, obesity. Risk Scores: Score 0 - 3: 2.5% MACE over next 6 weeks - Discharge Home Score 4 - 6: 20.3% MACE over next 6 weeks - Admit for Clinical Observation Score 7 - 10: 72.7% MACE over next 6 weeks - Early Invasive Strategies (LATRICE HUNG DO) Course & Med Decision Making: Course & Med Decision Making Pertinent Labs and Imaging studies reviewed. (See chart for details) The patient's work-up is pending at this time. His EKG is concerning for possible elevation in lead III and aVF. Cardiology has been consulted. I spoke with Dr. Castro and he has reviewing the EKG. The patient would prefer to be transferred to [facility] where he had his bypass surgery. I am signing the patient out to Dr. Martino at 1749. [] (LATRICE HUNG DO) Course & Med Decision Making See Dr. Hung chart for details prior shift change. Pt has completed two COVID vaccinations, no booster. No flu vaccination. Pt accepted at [facility] on [address]- Dr. Verdugo . Pt. spike fever 103. Will add Vancomycin 1 gm. - Tylenol 1 gm. Impression: 1. N/ V 2. Mild leukocytosis 12.7 3. Anemia hemoglobin 11.7 4. Renal insufficiency creatinine 1.6 5. Diabetes 229 6 Elevation alk phos 120 7. Fever 8. UTI 9. CHF BNP= 3,349 ( reading earlier in AM 1,400) 10 Retro cardiac Infiltrate- ? Pneumonia vs Atelectasis (ALMA MARTINO MD) [place] Disclaimer: Kaia Disclaimer: This electronic medical record was generated, in whole or in part, using a voice recognition dictation system. (LATRICE HUNG DO) Departure Departure: Referrals: DENIS MIRELES (PCP) Kaia Disclaimer This chart was dictated in whole or in part using Voice Recognition software in a busy, high-work load, and often noisy Emergency Department environment. It may contain unintended and wholly unrecognized errors or omissions. (ALMA MARTINO MD) LATRICE HUNG DO Aug 03, 2021 17:25 ALMA MARTINO MD Aug 03, 2021 18:13
[2021-08-03] MEDS ORDERED: ONDANSETRON PF 4 MG/2 ML VIAL. ONE (17:28)
[2021-08-03] MEDS ORDERED: ONDANSETRON PF 4 MG/2 ML VIAL. IVP ONE (17:30)
[2021-08-03 17:36] LABS: BASO # 0.1 x10^3/uL (0.0-0.2); BASO % 1 % (0-3); EOS % 0 % (0-3); HEMATOCRIT 35.5 % (39.0-53.0); HEMOGLOBIN 11.7 g/dL (13.0-17.5); LYMPH # 0.8 x10^3/uL (1.0-4.8); LYMPH % 6 % (24-48); MEAN CORPUSCULAR HEMOGLOBIN 31 pg (25-35); MEAN CORPUSCULAR HGB CONC 33 g/dL (31-37); MEAN CORPUSCULAR VOLUME 92 fL (79-100); MONO # 1.1 x10^3/uL (0.0-1.1); MONO % 9 % (0-9); NEUT # 10.7 x10^3uL (1.8-7.7); NEUT % 84 % (31-73); PLATELET COUNT 283 x10^3/uL (140-400); RED BLOOD COUNT 3.85 x10^6/uL (4.30-5.70); RED CELL DISTRIBUTION WIDTH 15.5 % (11.5-14.5); WHITE BLOOD COUNT 12.7 x10^3/uL (4.0-11.0)
[2021-08-03 17:43] LABS: CALCIUM 9.3 mg/dL (8.5-10.1); CREATININE 1.6 mg/dL (0.7-1.3); GFR 42.8
[2021-08-03 17:49] LABS: ALBUMIN 3.4 g/dL (3.4-5.0); ALBUMIN/GLOBULIN RATIO 0.8 (1.0-1.7); TOTAL BILIRUBIN 0.8 mg/dL (0.2-1.0); TOTAL PROTEIN 7.8 g/dL (6.4-8.2)
--- NOTE | 2021-08-03 18:02 | EKG ---
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
--- NOTE | 2021-08-03 18:34 | RAD ---
CT HEAD/BRAIN WO History: Altered mental status. Comparison: 02/23/2021 Technique: Noncontrast CT imaging was performed of the head. Findings: No intracranial hemorrhage. No mass effect. No hydrocephalus. No evidence of acute territorial infar ction. Mild hypodensity the periventricular and deep white matter most likely represents chronic micr ovascular ischemic change.. Imaged orbits are unremarkable. Imaged paranasal sinuses and mastoid air cells are clear. The scalp a nd calvarium are unremarkable. Impression: 1. No acute intracranial abnormality. ----- Exposure: One or more of the following individualized dose reduction techniques were utilized for thi s examination: 1. Automated exposure control 2. Adjustment of the mA and/or kV according to patient size 3. Use of iterative reconstruction technique. Electronically signed by: Marbin Mendiola MD (08/03/2021 6:32 PM) [facility]
[2021-08-03 18:51] LABS: INFLUENZA A PATIENT NEGATIVE (NEGATIVE); INFLUENZA B PATIENT NEGATIVE (NEGATIVE)
--- NOTE | 2021-08-03 19:38 | RAD ---
EXAM: XR CHEST 1V 08/03/2021 5:27 PM CLINICAL INDICATION: Altered mental status COMPARISON: Chest radiograph 07/30/2021 TECHNIQUE: AP upright view of the chest FINDINGS: There are changes of median sternotomy. The heart is normal in size. Lungs are adequately expanded. There are increased left retrocardiac opacities. Unchanged small left pleural effusion. The right lung is clear. No pneumothorax. IMPRESSION: Increased left retrocardiac opacities. Unchanged small left pleural effusion. Electronically signed by: Opal Bell MD (08/03/2021 7:36 PM) [id number]
[2021-08-03 19:47] LABS: BACTERIA,URINE MANY /HPF (0-FEW); CLARITY,URINE HAZY; COLOR,URINE YELLOW; GLUCOSE,URINE NEG (NEG); NITRITE,URINE NEG (NEG); SQUAMOUS EPITHELIAL CELL,UR FEW /LPF; UROBILINOGEN,URINE 0.2 mg/dL (0.2 mg/dL); WBC,URINE >40 /HPF (0-4)
[2021-08-03] MEDS ORDERED: IOHEXOL 350 MG/ML 100 ML VIAL. IV ONE (20:00)
[2021-08-03] MEDS ORDERED: IV NORMAL SALINE 50ML 50 ML ONE (20:12)
[2021-08-03] MEDS ORDERED: cefTRIAXone SODIUM 1 GM VIAL ONE (20:12)
[2021-08-03] MEDS ORDERED: CONTRAST GIVEN. MC PRN (20:15)
[2021-08-03] MEDS ORDERED: FUROSEMIDE 40 MG/4 ML VIAL IVP ONE (20:30)
--- NOTE | 2021-08-03 21:23 | RAD ---
CTA CHEST History: Dyspnea, change in gait, altered mental status. 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 Comparison: CTA chest 07/30/2021. Technique: CTA of the pulmonary arteries with intravenous contrast. 3-D postprocessing was performed. Findings: Pulmonary arteries: No pulmonary embolism. Aorta and great vessels: No aneurysm or dissection of the aortic arch or thoracic aorta. Mild atheros clerosis. CABG changes of the aorta and mediastinum. Thyroid: No significant abnormalities. Mediastinum and michelle: No mediastinal masses or adenopathy is seen. Esophagus: Redemonstrated mild distal esophageal wall thickening. Heart: The heart is normal in size. There is no pericardial effusion. CABG changes. Coronary artery c alcification. Airways, Lungs, Pleura: Small left, trace right pleural effusion, similar to comparison. Moderate lef t lower lobe and lingular atelectasis. Minimal right lower lobe atelectasis. Findings similar to comp arison. Upper abdomen: Limited evaluation of the upper abdomen is unremarkable. Osseous structures and soft tissues: Postsurgical changes from sternotomy. Impression: 1. No pulmonary embolism, aortic aneurysm or aortic dissection. 2. Redemonstrated small left pleural effusion with moderate atelectasis of the left lower lobe and l ingula. Superimposed infection cannot be excluded. 3. Redemonstrated mild distal esophageal wall thickening. Correlate for esophagitis. ------ Exposure: One or more of the following individualized dose reduction techniques were utilized for thi s examination: 1. Automated exposure control 2. Adjustment of the mA and/or kV according to patient size 3. Use of iterative reconstruction technique. Electronically signed by: Marbin Mendiola MD (08/03/2021 9:21 PM) [facility]
[2021-08-03 22:00] VITALS: BP 146/64
--- NOTE | 2021-08-03 22:10 | EKG ---
[address] [address] Test Date: 2021-08-03 Test Time: 18:54:07 Pat Name: BENSON JORDAN Department: Room: Gender: M Youth Director: ELIAN : 1950 Requested By: ALMA MARTINO Order Number: [id number] Reading MD: Jose Rossi Measurements Intervals [place] Rate: 109 P: -90 WV: 142 QRS: -55 QRSD: 150 T: -5 QT: 366 QTc: 495 Interpretive Statements SINUS TACHYCARDIA RIGHT BUNDLE BRANCH BLOCK QRS(T) CONTOUR ABNORMALITY CONSISTENT WITH INFEROLATERAL INFARCT AGE UNDETERMINED ABNORMAL ECG Electronically Signed On 08-04-2021 19:59:35 [employer] by Jose Rossi
[2021-08-03] MEDS ORDERED: ACETAMINOPHEN 500 MG TABLET PO ONE (23:16)
[2021-08-03] MEDS ORDERED: VANCOMYCIN 1 GM VIAL. ONE ×2 (23:24→23:25)
[2021-08-03] MEDS ORDERED: IV NORMAL SALINE 500ML 500 ML ONE (23:24)
[2021-08-03] MEDS ORDERED: VANCOMYCIN 1 GM in IV NORMAL SALINE 250ML 250 ML IV ONE (23:30)
[2021-08-03] MEDS ORDERED: VANCOMYCIN 2 GM in IV NORMAL SALINE 500ML 500 ML IV ONE (23:45)
[2021-08-04] MEDS ORDERED: ENOXAPARIN ** NOTE DOSE ** SYRINGE SQ ONE
== END 2021-08-04 00:13 | disposition short-term general hospital (02) ==
LOC: ER 17:11
DX: D64.9 Anemia, unspecified (principal); D72.829 Elevated white blood cell count, unspecified; N28.9 Disorder of kidney and ureter, unspecified; E11.9 Type 2 diabetes mellitus without complications; R79.89 Other specified abnormal findings of blood chemistry; N39.0 Urinary tract infection, site not specified; I11.0 Hypertensive heart disease with heart failure; I50.9 Heart failure, unspecified; I25.810 Atherosclerosis of coronary artery bypass graft(s) without angina pectoris; Z20.822 Contact with and (suspected) exposure to COVID-19; Z87.440 Personal history of urinary (tract) infections; Z88.2 Allergy status to sulfonamides
CPT/HCPCS: 36415; 70450; 71045; 71275; 80053; 81001; 82947; 83880; 84484; 85025; 85379; 85610; 85730; 87040; 87086; 87428; 93005; 96365; 96366; 96368; 96372; 96374; 96375; 99285; C9803; J0696; J1650; J1940; J2405; J3370; J7040; Q9967; U0003; 87077; 87186